=== PATIENT | female | born 1975 | race Native Hawaiian/Other Pacific Islander ===

== ENCOUNTER 2024-03-23 03:16 | Emergency (ER) | payer OTHER ==
[~2024-03-23] VITALS: Ht 157.5 cm; Wt 63.6 kg
[2024-03-23 03:27] VITALS: TEMP 98.7
[2024-03-23] MEDS ORDERED: KETOROLAC TROMETHAMINE 30 MG/ML VIAL IVP ONE (03:30)
[2024-03-23] MEDS: ONDANSETRON HCL 4 MG/2 ML VIAL IVP ONE (03:40)
[2024-03-23] MEDS: FAMOTIDINE 20 MG/2 ML VIAL IVP ONE (03:40)
[2024-03-23] MEDS: SODIUM CHLORIDE 0.9% 1,000 ML IV ONE (03:40)
[2024-03-23] MEDS: KETOROLAC TROMETHAMINE 15 MG/ML VIAL IVP ONE (03:40)
[2024-03-23] MEDS: MAG HYDROX/ALUMINUM HYD/SIMETH 30 ML SUSPENSION UDCUP PO ONE (03:40)
[2024-03-23 03:41] LABS: BASOPHILS % (AUTO) 0.7 % (0.0-2.0); EOSINOPHILS % (AUTO) 2.7 % (1.0-6.0); HEMATOCRIT 39.2 % (36-46); HEMOGLOBIN 12.8 g/dL (12.0-16.0); LYMPHOCYTES # (AUTO) 1.5 K/uL (1.0-4.8); LYMPHOCYTES % (AUTO) 24.6 % (22.0-44.0); MEAN CORPUSCULAR HEMOGLOBIN 28.5 pg (26.0-34.0); MEAN CORPUSCULAR HGB CONC 32.7 G/dL (31.0-37.0); MEAN CORPUSCULAR VOLUME 87 fL (80-100); MONOCYTES # (AUTO) 0.5 K/uL (0.1-1.0); NEUTROPHILS # (AUTO) 3.7 K/uL (1.8-7.7); PLATELET COUNT (AUTO) 208 K/uL (150-450); RED CELL DISTRIBUTION WIDTH 13.6 % (11.5-14.5); WHITE BLOOD COUNT (AUTO) 5.9 K/uL (4.5-11.0)
[2024-03-23] MEDS ORDERED: SODIUM CHLORIDE 0.9% 100 ML ONE (04:00)
[2024-03-23] MEDS ORDERED: IOHEXOL 350 MG/ML 100 ML VIAL ONE (04:00)
[2024-03-23 04:11] LABS: ANION GAP 9 mmol/L (8-16); CALCIUM, TOTAL 9.1 mg/dL (8.8-10.5); CARBON DIOXIDE 29 mmol/L (22-29); CHLORIDE 102 mmol/L (98-107); CREATININE 0.89 mg/dL (0.60-1.30); GLOMERULAR FILTR. RATE CALC > 60 mL/min (>60); GLUCOSE,RANDOM 129 mg/dL (70-110); POTASSIUM 3.5 mmol/L (3.5-5.1); SODIUM SERUM 140 mmol/L (136-145); UREA NITROGEN, BLOOD 11 mg/dL (7-18)
[2024-03-23 04:17] LABS: ALANINE AMINOTRANSFERASE 32 U/L (12-78); ALBUMIN 3.6 g/dL (3.4-5.0); ALKALINE PHOSPHATASE 72 U/L (46-116); ASPARTATE AMINOTRANSFERASE 17 U/L (15-37); BILIRUBIN,TOTAL 0.3 mg/dL (0.1-1.0); LIPASE 31 U/L (16-77); TOTAL PROTEIN, SERUM 7.3 g/dL (6.4-8.2)
[2024-03-23] MEDS ORDERED: ONDA-104 PO (05:46)
[2024-03-23 05:51] VITALS: BP 126/98; PULSE 89; RESP 16
== END 2024-03-23 06:07 | disposition home or self-care (01) ==
LOC: EMS 03:16
DX: R10.13 Epigastric pain (principal); R10.11 Right upper quadrant pain; R11.2 Nausea with vomiting, unspecified
CPT/HCPCS: 99285; 74177; 96374; 76705; 96375; 96361; 80053; 83690; 84703; 85025; 36415; Q9967; J3490; J1885; J2405; J7030; J7050